=== PATIENT | female | born 1965 | race Two or more races ===

== ENCOUNTER 2016-10-09 08:37 | Observation (INO) | payer OTHER ==
[2016-10-09] VITALS (8 sets, daily range): BP systolic 108–149; BP diastolic 46–66; PULSE 82–118; RESP 0–27; O2SAT 96–100
[~2016-10-09] VITALS: Ht 170.2 cm; Wt 55.3 kg
--- NOTE | 2016-10-09 08:53 | ED.REPORT ---
HPI-General Illness Date of Service Oct 09, 2016 ED Provider: Luis Campbell MD A 50 year old female with a history of type I diabetes presents to the ED via EMS with confusion and agitation that began earlier this morning. EMS recorded BS in the 40's and a second reading recorded BS at 350. Patient is currently complaining of general malaise, headache, nausea and abdominal pain. She denies any symptoms last night. Patient is unable to provide a clear history at this time. noticed symptoms immediately as the patient woke up this morning and recorded her BS in the 60''s. Patient reportedly became combative when he attempted give her syrup. reports that she does not regularly attempt to control her diet. Nursing Notes Stated Complaint: HYPOGLYCEMIA Chief Complaint: General Complaint Nursing Notes Reviewed: Yes Allergies: Coded Allergies: No Known Allergies (Unverified , 10/09/16) General Time Seen by MD: 08:47 Chief Complaint Other (Hypoglycemia) Hx Obtained From: Patient Arrived By: Ambulance Sudden in Onset?: No Onset Occurred: 1 - 4 hours ago Symptom Duration: Since onset Location: : Head Quality: Aching Radiation: : Does not radiate Severity: Current: Mild Severity: Maximum: Mild Associated with: Reports: Abdominal pain, Headache, Nausea Pertinent Negative: Pt denies other symptoms Recent Healthcare: No recent doctor visit, No recent hospitalization Past Medical History Past Medical History Notes: PCP: [facility] Past Medical History Type I diabetes (Since age 12) Past Surgical History None reported Smoking History Unknown if Ever Smoker Social History Other Social History: Good social support, Ambulatory Status Independent Review of Systems Hypoglycemia Full Review of Systems Constitutional: Reports: Malaise, Denies: Chills, Fever GI: Reports: Abdominal pain, Nausea Neurologic: Reports: Headache Psychiatric: Reports: Agitation, Confusion Complete sys rev & neg: except as marked. Physical Exam Vital Signs Vital Signs Date Time Temp Pulse Resp B/P Pulse Ox O2 Delivery O2 Flow Rate FiO2 10/09/16 13:58 116 20 110/46 97 Room Air 10/09/16 10:08 97 17 140/60 96 Room Air 10/09/16 08:44 36.5 111 17 149/66 100 Room Air 10/09/16 08:40 36.5 111 27 149/66 100 Room Air Initial VS: Reviewed Neck: Supple, Non-tender, Full range of motion Extremities: Vascular intact, Neuro intact, No swelling, No tenderness Skin: Warm, Dry, No cyanosis General/Constitutional: Awake, Alert Behavior: Positive: Agitated GENERAL: Partially cooperative with exam Head / Eyes: Atraumatic, Normocephalic, PERRL Respiratory / Chest: Atraumatic, Breath sounds NL, Breath sounds = bilat, No respiratory distress Cardiovascular: Regular rhythm, Heart sounds NL Heart Rate / Rhythm: Positive: Tachycardia Abdomen: Atraumatic, Soft Tenderness/Guarding/Rebound: Positive: Tender diffuse Neurologic: Oriented X3, CN II - XII intact Interpretation & Diagnostics Lab Results Interpretation Result Diagram: 10/09/16 0900 10/09/16 0900 Test 10/09/16 09:00 10/09/16 11:25 White Blood Count 6.2th/mm3 (3.8-10.1) Red Blood Count 3.74mil/mm3 (3.90-5.20) Hemoglobin 9.8g/dL (12.0-15.6) Hematocrit 30.4% (35.0-46.0) Mean Corpuscular Volume 81.3fL (81-100) Mean Corpuscular Hemoglobin 26.2pg (27.0-35.0) Mean Corpuscular Hemoglobin Concent 32.2% (32.0-37.0) Red Cell Distribution Width 13.4% (12.3-15.4) Platelet Count 178bil/L (150-400) Neutrophils (%) (Auto) 72.3% (40-74) Lymphocytes (%) (Auto) 17.4% (14-46) Monocytes (%) (Auto) 8.4% (4-12) Eosinophils (%) (Auto) 1.5% (0-5) Basophils (%) (Auto) 0.2% (0-3) Sodium Level 145mEq/L (134-144) Potassium Level 3.6mEq/L (3.5-5.2) Chloride Level 108mEq/L (97-108) Carbon Dioxide Level 23mmol/L (18-29) Blood Urea Nitrogen 16mg/dL (6-24) Creatinine 0.32mg/dL (0.57-1.00) Estimat Glomerular Filtration Rate 311mL/min (>59) Glucose Level 125mg/dL (60-99) Lactic Acid Level 2.6mmol/L (0.4-2.0) Calcium Level 9.8mg/dL (8.5-10.1) Magnesium Level 1.5mg/dL (1.6-2.6) Total Bilirubin 0.3mg/dL (0.0-1.2) Aspartate Amino Transf (AST/SGOT) 23U/L (0-50) Alanine Aminotransferase (ALT/SGPT) 16U/L (0-32) Alkaline Phosphatase 77U/L (25-150) Troponin T 0.010ug/L (0.0-0.011) Total Protein 5.8g/dL (6.4-8.4) Albumin 3.5g/dL (3.4-5.0) Hold Lopez Top Tube Received (Received) Urine Color Straw (YELLOW) Urine Appearance Hazy (CLEAR,HAZY) Urine pH 7.5 (5.0-8.0) Urine Specific Sterling 1.015 (1.003-1.035) Urine Protein Negativemg/dL (NEG,TRACE) Urine Glucose (UA) 250mg/dL (NEGATIVE) Urine Ketones Negativemg/dL (NEGATIVE) Urine Occult Blood Negative (NEGATIVE) Urine Nitrite Negative (NEGATIVE) Urine Bilirubin Negative (NEGATIVE) Urine Urobilinogen Normalmg/dL (NORMAL) Urine Leukocyte Esterase Negative (NEGATIVE) Urine RBC 0-2/hpf (0-2) Urine WBC 0-5/hpf (0-5) Urine Epithelial Cells Occasional/hpf (NONE-MOD) Urine Crystals Amorphous phosphates Urine Bacteria Many/hpf (NONE-FEW) Urine Hyaline Casts None/lpf (NONE) Urine Granular Casts None seen (NONE SEEN) Urine Waxy Casts None seen (NONE SEEN) Urine Red Blood Cell Casts None seen (NONE SEEN) Urine White Blood Cell Casts None seen (NONE SEEN) Urine Mucus None seen (None Seen) Urine Trichomonas None seen (NONE SEEN) Urine Yeast None (NONE SEEN) Urinalysis Comment None Urine Culture Reflexed Indicated X-Ray Chest Interpretation Chest Xray Interpretation: IMPRESSION: No acute cardiopulmonary findings. Dictated by: Helen Fuentes M.D. on 10/09/2016 at 9:30 Interpretation / Wet Read by: Interpret - Radiologist Re-Eval/Medical Decision Med Decision/Clinical Course Blood sugars have gone up and down while she is here. At one point it was not clear whether her pump was actually functioning or not. We removed the pump and said it on the countertop to take it out of the equation. Finally after multiple interventions of fluid and glucose her mental state has returned to normal but she continues to feel poorly, unsettled and with a headache. We will admit for observation throughout the day today to see if she will return to normal. Time of Eval: 09:36 Patient Status: Condition unchanged Re-Evaluation/Progress Note: Patient is rechecked. provides a more detailed HPI. Time of Eval: 12:31 Patient Status: Condition improved Re-Evaluation/Progress Note: BS is in 100's. Patient reports that she is still nauseous but is feeling much better. She is informed of her X-ray results and lab results. Patient is given the option to admit for observation. She reports that she would like to wait a half hour before making the decision. Time of Eval: 13:10 Patient Status: Condition improved Re-Evaluation/Progress Note: Patient is resting comfortably. She is currently expressing concerns because she has never experienced any simialr episodes. Her symptoms have improved and she is requesting admission at this time. All questions about the treatment plan are addressed. Consultation : Referral / Consult Name: Lisa Da Silva DO Consulted With: Hospitalist Call Returned at: 14:05 Prosthetist: Will see patient, Agrees with eval, Agrees with plan, Accepts admit Counseled Regarding: Diagnosis, Lab results, Need for admission Discharge & Departure Primary Impression: Hypoglycemia Additional Impression: Altered mental status Altered mental status type: unspecified Qualified Code: R41.82 - Altered mental status, unspecified Disposition: ADMITTED TO HOSPITAL Discharge Condition All VS Reviewed: Yes Condition: Stable Referrals: Nataliya Brandt MD Attestation Portions of this note were transcribed by Livier Ibarra. I, Dr. Campbell personally performed the history, physical exam and medical decision-making; I reviewed and confirmed the accuracy of the information in the transcribed note. Signed by: Ori Borrero, 10/09/16 2290. copies to: Nataliya Brandt MD, Kirk H MD Oct 09, 2016 08:52 LIVIER IBARRA Oct 09, 2016 08:58
[2016-10-09 09:17] LABS: BASOPHILS % (AUTO) 0.2 % (0-3); EOSINOPHILS % (AUTO) 1.5 % (0-5); MONOCYTES % (AUTO) 8.4 % (4-12); Mean Corpuscular Hemoglobin 26.2 pg (27.0-35.0); Mean Corpuscular Volume 81.3 fL (81-100); NEUTROPHILS % (AUTO) 72.3 % (40-74); Platelet Count 178 bil/L (150-400)
--- NOTE | 2016-10-09 09:32 | DRSVH ---
PROCEDURE: X-RAY CHEST ONE VIEW, PORTABLE ([id number]) INDICATIONS: Altered LOC TECHNIQUE: One view of the chest was acquired. COMPARISON: None. FINDINGS: Surgical changes and devices: None. Lungs and pleura: No pleural effusions or pneumothorax. Lungs are clear. Mediastinum: Mediastinal contours appear normal. Heart size is normal. Bones and chest wall: No suspicious bony lesions. Overlying soft tissues appear unremarkable. IMPRESSION: No acute cardiopulmonary findings. Dictated by: Helen Fuentes M.D. on 10/09/2016 at 9:30 Approved by: Helen Fuentes M.D. on 10/09/2016 at 9:30
[2016-10-09] MEDS ORDERED: Dextrose 5% 0.9% NaCl 1,000 ML IV SCH (10:00)
[2016-10-09 10:05] LABS: TROPONIN T 0.01 ug/L (0.0-0.011)
[2016-10-09 10:16] LABS: Magnesium 1.5 mg/dL (1.6-2.6)
[2016-10-09 12:17] LABS: APPEARANCE,URINE HAZY (CLEAR,HAZY); COLOR,URINE STRAW (YELLOW); PH,URINE 7.5 (5.0-8.0)
[2016-10-09 12:18] LABS: OCCULT BLOOD,URINE NEGATIVE (NEGATIVE); UROBILINOGEN,URINE NORMAL (NORMAL)
[2016-10-09] MEDS ORDERED: Ondansetron 2 mg/mL 2 mL Inj IVPUSH ONE (12:40)
[2016-10-09] MEDS ORDERED: Ondansetron 2 mg/mL 2 mL Inj IVPUSH PRN ×2 (14:20→14:25)
[2016-10-09] MEDS ORDERED: Alum-Mag Hydrox-Simeth 30 mL Suspension PO PRN ×2 (14:20→14:25)
[2016-10-09] MEDS ORDERED: Polyethylene Glycol (PEG) 17 Gm Powder PO PRN (14:25)
--- NOTE | 2016-10-09 14:50 | NUR ---
Arrival to Floor Patient brought to floor via wheelchair by ER staff, was able to ambulate to bed from wheelchair, will assess and monitor.
--- NOTE | 2016-10-09 15:13 | NUR ---
Elevated Blood Sugar Contacted Dr. Da Silva with the following cook page: Patient's BS checked upon arrival to the floor, it is currently 338; no insulin orders currently. Please advise. Thank you. Abida [facility] [id number]
[2016-10-09] MEDS ORDERED: PRAV80TA2 PO (15:27)
[2016-10-09] MEDS ORDERED: LEVO200T6 PO (15:27)
[2016-10-09] MEDS ORDERED: INSU100C11 (15:27)
[2016-10-09] MEDS ORDERED: MESA1.2T2 PO (15:27)
[2016-10-09] MEDS ORDERED: CITA20TA PO (15:27)
[2016-10-09] MEDS ORDERED: IBUP200C PO (15:29)
[2016-10-09] MEDS: Insulin Human REGular 300 Unit/3 mL Inj SUBQ SCH ×2 (15:56→20:30)
--- NOTE | 2016-10-09 16:04 | PCM.HPMED ---
Subjective Date of Service Oct 09, 2016 Primary Provider: Admitting Physician: Lisa Da Silva DO Primary Care Physician: Nataliya Brandt MD Attending Physician: Lisa Da Silva DO Allergies Coded Allergies: No Known Allergies (Unverified , 10/09/16) PMH Social History Hx Alcohol Use: No Hx Substance Use: No Smoking Status: Unknown if Ever Smoker Exam Vital Signs Vital Sign - Last Date Time Temp Pulse Resp B/P Pulse Ox O2 Delivery O2 Flow Rate FiO2 10/09/16 14:56 37.2 118 16 113/55 97 Room Air Lab and Diagnostics Result Diagram: 10/09/16 0900 10/09/16 0900 Assessment & Plan HPI: A 50-year-old female presented to the emergency room with the complaint of hypoglycemia. The patient is a known type I diabetic had hypoglycemic episodes in the past. The patient awoke this morning and was very irritated and agitated and her her blood glucose and found to be 50. The patient was very agitated and refused to drink orange juice so the finally was able to give her some maple syrup however the patient still did not respond as she usually does her mentation remained altered. He has been called EMS came and gave her D50 and her blood glucose remained in the 50s however repeat check in in the field revealed that she had a blood glucose in the 300s. He has been finding that the blood glucose in the 300s may have been secondary to the fact that the patient did have an ulcer on her fingers. Patient states that before bed she checked her blood glucose and it was 225 and she gave herself 1unit. Patient states over the last few weeks she has had some dyspnea which resolved with rest and also complains of a current headache, but patient denies any chest pain, nausea, vomiting, diarrhea, blurry vision. The patient was brought into the ED and the patient still had altered mental status and repeat blood glucose was 50. The patient received an amp of D50 in the ED and then started to arouse once more. However even though the patient started to return back to her baseline mental status she was still a little altered and repeat blood glucose fingerstick showed that the patient had a blood glucose of 300. Patient's blood sugars seem to be very labile and her mentation also seems to be unstable and it was thought that he would benefit the patient to come in for at least overnight observation. Home medications: Insulin sliding scale Synthroid 200mcg QD Pravastatin 80 mg daily Mesalamine 2.4 g daily Allergies: No known drug allergies PMHx: Type I diabetes diagnosed as a teenager HLD Colitis Hypothyroid SHx: x1 FHx: DM-II, CAD mother and father SocHx: Occupation: [employer] Tobacco history: Patient denies quit 6 months ago smoked 4-6cigs QD x 8 years Alcohol use: Patient denies Drug use: Patient denies ROS: A complete review of systems was performed or attempted to be performed. Please see HPI for pertinent positives, all other systems are negatives. Physical Exam: GEN: Patient was awake, alert, responding appropriately to questions HEENT: Pupils equal round and reactive to light, extraocular eye muscles intact , Neck soft supple, trachea midline, nomocephalic/atraumatic CV: +S1/S2, regular rate and rhythm, systolic murmur auscultated Respiratory: CTAB, no wheezes, rales, rhonchi GI: +bowel sounds x4, soft, compressible, nontender to palpation EXT: no clubbing, cyanosis, edema Neuro: Cranial nerves II-XII grossly intact Psych: mood and affect were appropriate Assessment and Plan 50-year-old female with a past medical history of type I diabetes presents with hypoglycemia and altered mental status Altered mental status in the setting of hypoglycemia in a Type I diabetes ( currently back at baseline mentation) -Accu-Cheks before meals at bedtime -Discontinue D5 half normal saline -High-dose insulin correction scale -Hemoglobin A1c pending Hypomagnesemia -Magnesium 1.5 -Replete with 2 g of magnesium sulfate Dyspnea -Continue to monitor pulse ox -Albuterol nebulizers when necessary Depression - Continue Celexa 20 mg daily Hypothyroidism -Continue home dose of levothyroxine Hyperlipidemia -Continue comparable dose to home medication Colitis -Continue mesalamine Disposition: Patient will most likely stay less than 2 midnights Code Status: Full code Time spent 1 hour Lisa Da Silva DO Oct 09, 2016 16:04
[2016-10-09] MEDS ORDERED: Magnesium Sulf 2 Gm/50mL Water 2 GM in IV Premix 1 EACH IV ONE (16:10)
--- NOTE | 2016-10-09 18:21 | PCM.ADCARE ---
Advance Care Planning Note Purpose of Encounter: To discuss goals of care and CODE STATUS Parties in Attendance: The patient Brunilda Raymundo and Dr. Da Silva Decisional Capacity: Good Plan: Patient is currently aware of her medical conditions and wishes to be a full code. Patient states that she agrees to having CPR, antibiotics, mechanical ventilation if necessary. Time Spent Adv.Care Plannin minutes Lisa Da Silva DO Oct 09, 2016 18:21
[2016-10-09] MEDS ORDERED: Albuterol 1.25 mg/3 mL Inhalation Solution NEB PRN (19:25)
--- NOTE | 2016-10-09 21:04 | NUR ---
BLOOD SUGAR Pts blood sugar at 2029 was 334, taken by fire extinguisher charger. When this RN entered room, pt reported she gave herself 3.5 units of humalog through her pump because she "wasn't sure when the other kavya would come back with the insulin." Paged Dr. Bauer, awaiting reply. Addendum: 10/09/16 at 2109 by DARWIN LONDONO RN MD [email or web address] to hold now dose of Humulin, will educate pt on need for nursing to administer Humulin.
[2016-10-10 01:18] VITALS: BP 119/58; PULSE 98; RESP 18; O2SAT 96
[2016-10-10] MEDS: Insulin Human REGular 300 Unit/3 mL Inj SUBQ SCH ×4 (01:30→12:35)
--- NOTE | 2016-10-10 01:35 | NUR ---
PAIN Pt c/o continuous headache with mild photosensitivity. Pain is 5-6/10, but no improvement from Tylenol. At 0130, pt also mentioned mild pain in the medial aspect of the l. foot where bone protrudes out, feels like throbbing and is keeping her awake. Paged Dr. Bauer for medication recommendations. Awaiting reply. Addendum: 10/10/16 at 0142 by DARWIN LONDONO RN Roxicodone ordered. Will evaluate for effectiveness. Continuing care and hourly rounding in place.
[2016-10-10 06:04] VITALS: BP 112/58; PULSE 83; RESP 16; O2SAT 96
[2016-10-10 07:21] LABS: Mean Corpuscular Hemoglobin 25.9 pg (27.0-35.0); Mean Corpuscular Volume 80.4 fL (81-100)
[2016-10-10 07:40] VITALS: PULSE 92; RESP 20; O2SAT 98
[2016-10-10 07:54] LABS: Magnesium 1.8 mg/dL (1.6-2.6)
[2016-10-10] MEDS ORDERED: cefTRIAXone Inj 2,000 MG in Dextrose 5% Minibag Plus 50 ML IV SCH (08:05)
[2016-10-10] MEDS ORDERED: MESALAMINE 2.4 GM PO SCH (08:30)
[2016-10-10 08:46] VITALS: BP 121/62; PULSE 89; RESP 16; O2SAT 96
--- NOTE | 2016-10-10 10:39 | NUR ---
Blood Sugar BG checked at 0830 124. Re checked per pt request after breakfast at 1030 BS 383. Pt asked to be put back on her pump. Dr Da Silva was asked if she could go back on the pump, Dr agreed. BS checks will be done QH. Dr to be notified if BS level is not staying under 200. Addendum: 10/10/16 at 1201 by LANDON NAM RN Rechecked BG at 1130 result was 371. RN asked pt if insulin pump was working, pt stated she just realized her pump was out of insulin. Family stated they do not live close enough to run home and get her a refill. RN paged Dr Da Silva with findings. Dr Da Silva ordered RN to give pt 10 units of Humalin R. Re check BG in 1 hr. Pt and family get very anxious to leave due to having a family dinner at 2pm. Addendum: 10/10/16 at 1226 by LANDON NAM RN Blood sugar re checked at [address] Rekha villela'ravi, instructed RN to give 12 additional units of Humalin R and re check in half hour.
[2016-10-10] MEDS ORDERED: SULF1TAB7 PO (13:17)
--- NOTE | 2016-10-10 13:22 | PCM.DIMED ---
Discharge Instructions Date of Service Oct 10, 2016 Dates of Hospitalization Oct 09, 2016 at 14:04 Discharge Diagnosis Discharge Diagnosis Hypoglycemia in the setting of type I diabetes UTI New Onset systolic murmur Medication Instructions Please check your blood glucose more regularly as you will be placed on an antibiotic which can alter your blood sugars. 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 Follow-up plan Please follow-up with cardiology for further workup of your new onset of a heart murmur. Please contact your primary care physician for any referrals that may be necessary. Follow-up Provider: Natailya Brandt MD Follow-up with PCP in: 1 week (if an appointment has not been made please call to schedule an appointment) Follow-up in: 1 week (please follow-up with your stadium manager for further evaluation of recurrent insulin regimen) Lisa Da Silva DO Oct 10, 2016 13:22
--- NOTE | 2016-10-10 13:30 | PCM.DC.MED ---
Discharge Summary Date of Service Oct 10, 2016 Dates of Hospitalization Date of Hospital Admission Oct 09, 2016 at 14:04 Date of Discharge: Oct 10, 2016 Providers: Admitting Physician: Lisa Da Silva DO Primary Care Physician: Nataliya Brandt MD Attending Physician: Lisa Da Silva DO Diagnosis at Time of Discharge Diagnosis at Time of Discharge Hypoglycemia in the setting of type I diabetes UTI New Onset systolic murmur Brief History A 50-year-old female presented to the emergency room with the complaint of hypoglycemia. The patient is a known type I diabetic had hypoglycemic episodes in the past. The patient awoke this morning and was very irritated and agitated and her her blood glucose and found to be 50. The patient was very agitated and refused to drink orange juice so the finally was able to give her some maple syrup however the patient still did not respond as she usually does her mentation remained altered. He has been called EMS came and gave her D50 and her blood glucose remained in the 50s however repeat check in in the field revealed that she had a blood glucose in the 300s. He has been finding that the blood glucose in the 300s may have been secondary to the fact that the patient did have an ulcer on her fingers. Patient states that before bed she checked her blood glucose and it was 225 and she gave herself 1unit. Patient states over the last few weeks she has had some dyspnea which resolved with rest and also complains of a current headache, but patient denies any chest pain, nausea, vomiting, diarrhea, blurry vision. The patient was brought into the ED and the patient still had altered mental status and repeat blood glucose was 50. The patient received an amp of D50 in the ED and then started to arouse once more. However even though the patient started to return back to her baseline mental status she was still a little altered and repeat blood glucose fingerstick showed that the patient had a blood glucose of 300. Patient's blood sugars seem to be very labile and her mentation also seems to be unstable and it was thought that he would benefit the patient to come in for at least overnight observation. Hospital Course 50-year-old female with a past medical history of type I diabetes presents with hypoglycemia and altered mental status The patient has been stable since admission and has not needed further amps of D50. The patient has needed an increased amount of insulin. The patient has been instructed to follow-up with her automobile accessories installer and her primary care physician as her current insulin pump regimen may need to be reevaluated. The patient's blood glucose upon discharge was 215 this was after receiving 22 units of insulin. The patient does have a new onset systolic heart murmur grade 2/6. The patient would prefer to have this worked up as an outpatient and has been encouraged to follow-up with her PCP for any referrals to cardiology. Patient is being discharged home in stable condition and back to her baseline mental status For full hospital course please see below: Altered mental status in the setting of hypoglycemia in a Type I diabetes ( currently back at baseline mentation) -Accu-Cheks before meals at bedtime -Discontinue D5 half normal saline -High-dose insulin correction scale -Hemoglobin A1c pending Hypomagnesemia -Magnesium 1.5 -Replete with 2 g of magnesium sulfate Dyspnea -Continue to monitor pulse ox -Albuterol nebulizers when necessary Depression - Continue Celexa 20 mg daily Hypothyroidism -Continue home dose of levothyroxine Hyperlipidemia -Continue comparable dose to home medication Colitis -Continue mesalamine Disposition: Patient will most likely stay less than 2 midnights Code Status: Full code Exam Vital Signs (Last) Date Time Temp Pulse Resp B/P Pulse Ox O2 Delivery O2 Flow Rate FiO2 10/10/16 08:46 36.7 89 16 121/62 96 Room Air Exam Physical Exam: GEN: Patient was awake, alert, responding appropriately to questions HEENT: Pupils equal round and reactive to light, extraocular eye muscles intact , Neck soft supple, trachea midline, nomocephalic/atraumatic CV: +S1/S2, regular rate and rhythm, systolic murmur auscultated Respiratory: CTAB, no wheezes, rales, rhonchi GI: +bowel sounds x4, soft, compressible, nontender to palpation EXT: no clubbing, cyanosis, edema Neuro: Cranial nerves II-XII grossly intact Psych: mood and affect were appropriate Test 10/09/16 09:00 10/09/16 11:25 10/09/16 16:55 10/10/16 06:53 Neutrophils (%) (Auto) 72.3% (40-74) Lymphocytes (%) (Auto) 17.4% (14-46) Monocytes (%) (Auto) 8.4% (4-12) Eosinophils (%) (Auto) 1.5% (0-5) Basophils (%) (Auto) 0.2% (0-3) Lactic Acid Level 2.6mmol/L (0.4-2.0) Troponin T 0.010ug/L (0.0-0.011) Hold Lopez Top Tube Received (Received) Urine Color Straw (YELLOW) Urine Appearance Hazy (CLEAR,HAZY) Urine pH 7.5 (5.0-8.0) Urine Specific [place] 1.015 (1.003-1.035) Urine Protein Negativemg/dL (NEG,TRACE) Urine Glucose (UA) 250mg/dL (NEGATIVE) Urine Ketones Negativemg/dL (NEGATIVE) Urine Occult Blood Negative (NEGATIVE) Urine Nitrite Negative (NEGATIVE) Urine Bilirubin Negative (NEGATIVE) Urine Urobilinogen Normalmg/dL (NORMAL) Urine Leukocyte Esterase Negative (NEGATIVE) Urine RBC 0-2/hpf (0-2) Urine WBC 0-5/hpf (0-5) Urine Epithelial Cells Occasional/hpf (NONE-MOD) Urine Crystals Amorphous phosphates Urine Bacteria Many/hpf (NONE-FEW) Urine Hyaline Casts None/lpf (NONE) Urine Granular Casts None seen (NONE SEEN) Urine Waxy Casts None seen (NONE SEEN) Urine Red Blood Cell Casts None seen (NONE SEEN) Urine White Blood Cell Casts None seen (NONE SEEN) Urine Mucus None seen (None Seen) Urine Trichomonas None seen (NONE SEEN) Urine Yeast None (NONE SEEN) Urinalysis Comment None Urine Culture Reflexed Indicated Hemoglobin A1c 7.4% (4.8-5.6) White Blood Count 4.3th/mm3 (3.8-10.1) Red Blood Count 3.67mil/mm3 (3.90-5.20) Hemoglobin 9.5g/dL (12.0-15.6) Hematocrit 29.5% (35.0-46.0) Mean Corpuscular Volume 80.4fL (81-100) Mean Corpuscular Hemoglobin 25.9pg (27.0-35.0) Mean Corpuscular Hemoglobin Concent 32.2% (32.0-37.0) Red Cell Distribution Width 13.5% (12.3-15.4) Platelet Count 170bil/L (150-400) Sodium Level 141mEq/L (134-144) Potassium Level 4.0mEq/L (3.5-5.2) Chloride Level 105mEq/L (97-108) Carbon Dioxide Level 24mmol/L (18-29) Blood Urea Nitrogen 16mg/dL (6-24) Creatinine 0.35mg/dL (0.57-1.00) Estimat Glomerular Filtration Rate 280mL/min (>59) Glucose Level 110mg/dL (60-99) Calcium Level 9.5mg/dL (8.5-10.1) Magnesium Level 1.8mg/dL (1.6-2.6) Total Bilirubin 0.5mg/dL (0.0-1.2) Aspartate Amino Transf (AST/SGOT) 36U/L (0-50) Alanine Aminotransferase (ALT/SGPT) 34U/L (0-32) Alkaline Phosphatase 97U/L (25-150) Total Protein 5.5g/dL (6.4-8.4) Albumin 3.4g/dL (3.4-5.0) Discharge Medications Discharge Medications Citalopram Hydrobromide (Celexa) 20 Mg Tablet 20 MG PO DAILY (Reported) Levothyroxine (Levothyroxine) 200 Mcg Tablet 200 MCG PO DAILY (Reported) Mesalamine (Lialda) 1.2 Gm Tablet.dr 2.4 GM PO DAILY (Reported) Pravastatin (Pravastatin) 80 Mg Tablet 80 MG PO DAILY (Reported) Sulfamethoxazole/Trimeth 800-160 mg (Bactrim DS) 1 Each Tablet 1 TABLET PO BID Prescribed by: LISA DA SILVA, DO As needed Ibuprofen (Ibuprofen) 200 Mg Capsule 400 MG PO QID PRN PRN For Pain (Reported) Miscellaneous Medications Insulin Lispro (HumaLOG U100 Insulin Cartridge Refill) 100 Unit/1 Ml Cartridge ( Reported) Insulin Pump Additional med instructions Please check your blood glucose more regularly as you will be placed on an antibiotic which can alter your blood sugars. Followup Plan Follow-up plan Please follow-up with cardiology for further workup of your new onset of a heart murmur. Please contact your primary care physician for any referrals that may be necessary. Discharge Diet: Diabetic Discharge Activity: No restrictions (gradually returned to your normal daily activities) Patient Instructions The patient will follow up with her automobile accessories installer within the next week for reevaluation of her glucose monitor The patient has been instructed to follow-up with her primary care physician and the city weighmaster as the patient does have a new murmur which could be contributing to her shortness of breath. Follow-up Provider: Nataliya Brandt MD Follow-up with PCP in: 1 week (if an appointment has not been made please call to schedule an appointment) Follow-up in: 1 week (please follow-up with your automobile accessories installer for further evaluation of recurrent insulin regimen) Time spent Greater than 35 minutes copies to: Nataliya Brandt MD, Precious L DO Oct 10, 2016 13:30
--- NOTE | 2016-10-10 13:51 | NUR ---
Discharge Pt and family at bedside during discharge. DC instructions reviewed, new medication reviewed. Pt and families questions answered. IV DC'd, catheter intact. Pt up on own, wanted to walk out. No c/o of dizziness, or nausea. All belongings accounted for. Pt escorted by family to car.
== END 2016-10-10 13:45 | disposition home or self-care (01) ==
LOC: SED 08:37 → EDBD 08:37 → MOC 14:04
PROVIDERS: ADMIT Neuromusculoskeletal Medicine & OMM; ATTEND Neuromusculoskeletal Medicine & OMM
DX: E10.649 Type 1 diabetes mellitus with hypoglycemia without coma (principal); N39.0 Urinary tract infection, site not specified; E78.5 Hyperlipidemia, unspecified; R01.1 Cardiac murmur, unspecified; E03.9 Hypothyroidism, unspecified; K52.9 Noninfective gastroenteritis and colitis, unspecified; E83.42 Hypomagnesemia; R06.09 Other forms of dyspnea; F32.9 Major depressive disorder, single episode, unspecified; Z87.891 Personal history of nicotine dependence
CPT/HCPCS: 36415; 71010; 80053; 81000; 81025; 82948; 83036; 83605; 83735; 84484; 85025; 85027; 87086; 87088; 87186; 94799; 96365; 96375; 96376; 99285; G0378; J0696; J1815; J2405; J7042